=== PATIENT | female | born 1960 | race African-American/Black ===

== ENCOUNTER 2023-06-14 10:52 | Outpatient (OUT) | payer MEDICARE, SELFPAY ==
[2023-06-14 11:28] LABS: Estimated GFR (African America >60 (>=60); Estimated GFR (Non-African Ame 50 (>=60)
== END 2023-06-14 10:53 | disposition home or self-care (01) ==
LOC: MRI 10:56
PROVIDERS: PCP Family Medicine; Visit Provider Family Medicine
DX: Z01.812 Encounter for preprocedural laboratory examination (principal); R20.0 Anesthesia of skin; M51.36 Other intervertebral disc degeneration, lumbar region; R29.898 Other symptoms and signs involving the musculoskeletal system; Z98.890 Other specified postprocedural states; I10 Essential (primary) hypertension
CPT/HCPCS: 36415; 82565

== ENCOUNTER 2023-06-15 11:09 | Outpatient (OUT) | payer MEDICARE, SELFPAY ==
--- NOTE | 2023-06-15 10:20 | MR_ITS ---
[address] [address] Patient Name: JULIET VILLELA MRN: [id number] date: 1960 Sex: F Assigned Patient Location: [facility] Current Patient Location: Accession/Order Number: [id number] Exam Date: 06/15/2023 10:45 Report Date: 06/16/2023 05:59 At the request of: VENTURA BELLO Procedure: MR lumbar spine wo con EXAMINATION: MR lumbar spine wo con HISTORY: numbness left leg R20.0 ; left leg numbness and weakness; no known injury COMPARISON: XR lumbar spine 06/15/2023, 06/04/2023 TECHNIQUE: A variety of imaging planes and parameters were utilized for visualization of suspected pathology. FINDINGS: For the purposes of numbering, sagittal T2 image # 8 extends from the T10 vertebral body superiorly to the S5 level inferiorly. PARASPINAL AREA: Normal with no visible mass. BONES: No fracture spondylolisthesis. Degenerative endplate sclerosis L2 and L3. CORD/CAUDA EQUINA: Normal caliber, contour, and signal intensity. DISC LEVELS: 12-L1: Mild posterior disc bulging at several lower thoracic levels combined with degenerative facet arthropathy and ligamentum flavum thickening causing marked central canal narrowing at T10-T11 and T11-T12, greatest at T10-T11 were there is increased T2 signal within the cord suggesting marked compression. L1-L2: Marked central canal and moderate bilateral foramen narrowing. Marked diffuse disc bulging and mild disc at reduction. Mild degenerative facet arthropathy and ligament flavum thickening. L2-L3: Marked central canal and moderate bilateral foramen narrowing. Marked trace disc bulging with marked disc height reduction and moderate marked degenerative facet arthropathy. L3-L4: Marked central canal and moderate-marked bilateral foramen narrowing. Marked diffuse disc bulging with marked disc height reduction. Moderate degenerative facet arthropathy and ligamentum flavum thickening. L4-L5: Mild central canal narrowing. Moderate-marked right foramen and moderate left foramen narrowing. Mild diffuse disc bulging with marked disc height reduction and suspected osseous fusion on the left margin. Prior left laminectomy. Moderate- marked degenerative facet arthropathy on right with possible osseous fusion of facet joints. L5-S1: Moderate central canal and marked bilateral foramen narrowing. Moderate diffuse disc bulging and moderate disc height reduction. Marked degenerative facet arthropathy bilaterally. MR/MR lumbar spine wo con IMPRESSION: 1. Marked degenerative changes of lower thoracic through lumbar spine resulting in marked central canal and moderate marked foramen narrowing at multiple levels starting at T10-T11 where there is abnormal signal within the spinal cord/edema concerning for cord injury. Electronically authenticated by: MAYTE MILLS Date: 06/16/2023 05:59
--- NOTE | 2023-06-15 10:21 | XR_ITS ---
The [address] [address] Patient Name: JULIET VILLELA MRN: [id number] date: 1960 Sex: F Assigned Patient Location: [facility] Current Patient Location: [facility] Accession/Order Number: [id number] Exam Date: 06/15/2023 10:28 Report Date: 06/15/2023 10:53 At the request of: VENTURA BELLO Procedure: XR lumbar spine 2-3V EXAMINATION: XR lumbar spine 2-3V HISTORY: pre mri COMPARISON: No relevant comparison available. FINDINGS: BONES: Mechanical fusion of posterior spinous process of L4 and L5 via metallic clamp/plates. No bone fracture or significant listhesis. Multilevel degenerative endplate changes and osteophytes. Moderate degenerative facet arthropathy L3-4 through L5-S1. DISC SPACES: Marked narrowing L4-5. Moderate-marked narrowing at remaining levels. Posterior disc osteophyte complexes and degenerative bone encroachment on the neural foramen bilaterally causes moderate or greater narrowing at most lumbar levels. PARASPINOUS: Negative. No paraspinous abnormality is seen. OTHER: Negative. XR/XR lumbar spine 2-3V IMPRESSION: 1. Multilevel marked degenerative changes of lumbar spine. Electronically authenticated by: MAYTE MILLS Date: 06/15/2023 10:53
== END 2023-06-15 11:10 | disposition home or self-care (01) ==
LOC: RAD 11:09
PROVIDERS: PCP Family Medicine; Visit Provider Family Medicine
DX: R20.0 Anesthesia of skin (principal); M51.36 Other intervertebral disc degeneration, lumbar region; R29.898 Other symptoms and signs involving the musculoskeletal system; Z98.890 Other specified postprocedural states
CPT/HCPCS: 72100; 72148